=== PATIENT | male | born 1970 | race Caucasian/White ===

== ENCOUNTER → 2016-11-04 | Outpatient (CLI) | payer BC ==
[~2016-11-04] MED LIST: ALBUAER2 INH; AZIT500T PO; HYCUDL5 PO; OMEG10007 PO
--- NOTE | 2016-11-04 16:11 | DIAGNOSTIC IMAGING REPORT ---
TWO VIEW CHEST CLINICAL HISTORY: Dyspnea. FINDINGS: PA and lateral chest radiographs are compared to study dated 05/31/2015. The cardiomediastinal silhouette is unremarkable. There is patchy airspace consolidation in the right lower lobe. The appearance is typical for pneumonia. The left lung appears clear noting basilar atelectasis. No pleural effusion is identified. There is no pneumothorax. The bony thorax appears intact. IMPRESSION: There is right lower lobe airspace consolidation typical in appearance for pneumonia. Radiographic follow-up to resolution is recommended. Electronically signed by: Antonio Urban M.D. 11/04/2016 4:09 PM Dictated Date/Time: 11/04/2016 4:08 PM
[2016-11-04 16:37] LABS: BASO % 0.2 %; BASO ABS # 0.02 K/uL (0-0.2); COMPLETE YES; EOS % 0.6 %; HEMATOCRIT 41.5 % (42-52); IG% 0.3 %; LYMPH % 11.8 %; LYMPH ABS # 1.17 K/uL (1.2-3.4); MEAN CELL VOLUME 83.7 fL (80-100); MEAN CORPUSCULAR HEMOGLOBIN 29.6 pg (25-34); MEAN CORPUSCULAR HGB CONC 35.4 g/dl (32-36); MEAN PLATELET VOLUME 9.4 fL (7.4-10.4); MONO % 12.9 %; NEUT % 74.2 %; PLATELET COUNT 241 K/uL (130-400); RED BLOOD COUNT 4.96 M/uL (4.7-6.1); WHITE BLOOD COUNT 9.94 K/uL (4.8-10.8)
[2016-11-04 16:54] LABS: BLOOD UREA NITROGEN 17 mg/dl (7-18); BUN/CREATININE RATIO 15.1 (10-20); CALCIUM 9.2 mg/dl (8.5-10.1); CARBON DIOXIDE 24 mmol/L (21-32); CHLORIDE 101 mmol/L (98-107); GLUCOSE 109 mg/dl (70-99); POTASSIUM 3.4 mmol/L (3.5-5.1); SODIUM 138 mmol/L (136-145)
== END | disposition home or self-care (01) ==
LOC: C.RAD1850 15:48
PROVIDERS: ATTEND Nurse Practitioner Family
DX: R06.02 Shortness of breath (principal)